=== PATIENT | female | born 2000 | race Caucasian/White ===

== ENCOUNTER 2018-11-09 18:52 | Emergency (ER) | payer OTHER ==
--- NOTE | 2018-11-09 19:40 | ED ---
Complex/Multi-Sys Presentation - HPI Summary HPI Summary: 18-year-old presents with fatigue for the past couple weeks. She's been having intermittent chest pain. States chest pain changes location. pain is sharp. She has shortness breath when she ambulates up stairs. She has some nausea and has had no appetite. She states feels very weak. She has a history of bipolar. Denies any recent medication change. Denies any cough. No sore throat. No bowel pain. No urinary symptoms. - History Of Current Complaint Chief Complaint: EDGeneral Time Seen by Provider: 11/09/18 19:31 - Allergies/Home Medications Allergies/Adverse Reactions: Allergies Allergy/AdvReac Type Severity Reaction Status Date / Time Penicillins Allergy Unknown Verified 11/09/18 18:56 Reaction Details Sulfa (Sulfonamide Allergy Hives Verified 11/09/18 18:56 Antibiotics) Home Medications: Home Medications Erythromycin TAB* 125 mg PO QID 11/09/18 [History Confirmed 11/09/18] Erythromycin/Benzoyl Peroxide [Benzamycin Gel] 46.6 gm TP DAILY 11/09/18 [ History Confirmed 11/09/18] OXcarbazepine TAB(*) [Trileptal 300 mg TAB(*)] 600 mg PO DAILY 11/09/18 [ History Confirmed 11/09/18] busPIRone TAB* [Buspar *] 30 mg PO DAILY 11/09/18 [History Confirmed 11/09/18] PMH/Surg Hx/FS Hx/Imm Hx Endocrine/Hematology History: Denies: Hx Anticoagulant Therapy Respiratory History: Denies: Hx Asthma Infectious Disease History: No Infectious Disease History: Denies: Traveled Outside the [place] in Last 30 Days - Family History Known Family History: Negative: Blood Disorder Review of Systems Negative: Fever Positive: Chest Pain Positive: Shortness Of Breath Positive: Myalgia Positive: Headache, Weakness All Other Systems Reviewed And Are Negative: Yes Physical Exam Triage Information Reviewed: Yes Vital Signs On Initial Exam: Initial Vitals Temp Pulse Resp BP Pulse Ox 99.0 F 75 19 146/92 100 11/09/18 18:52 11/09/18 18:52 11/09/18 18:52 11/09/18 18:52 11/09/18 18:52 Vital Signs Reviewed: Yes Appearance: Positive: Well-Appearing Skin: Positive: Warm, Dry Head/Face: Positive: Normal Head/Face Inspection Eyes: Positive: Normal, EOMI, JOSIAH, Conjunctiva Clear ENT: Positive: Normal ENT inspection, Pharynx normal, TMs normal Neck: Positive: Supple, Nontender, No Lymphadenopathy. Negative: Nuchal Rigidity Respiratory/Lung Sounds: Positive: Clear to Auscultation, Breath Sounds Present Cardiovascular: Positive: Normal, RRR Abdomen Description: Positive: Nontender, Soft Bowel Sounds: Positive: Present Musculoskeletal: Positive: Normal Neurological: Positive: Normal Psychiatric: Positive: Normal Diagnostics - Vital Signs Vital Signs Temp Pulse Resp BP Pulse Ox 11/09/18 18:52 99.0 F 75 19 146/92 100 - Laboratory Result Diagrams: 11/09/18 19:58 11/09/18 19:59 Lab Statement: Any lab studies that have been ordered have been reviewed, and results considered in the medical decision making process. - EKG No standard instances Cardiac Rate: NL EKG Rhythm: Sinus Rhythm Summary of EKG Findings: sinus rhythm Complex Multi-Symp Course/Dx Course Of Treatment: 18-year-old presents with fatigue for the past couple weeks. She's been having intermittent chest pain. States chest pain changes location. pain is sharp. She has shortness breath when she ambulates up stairs. She has some nausea and has had no appetite. She states feels very weak. She has a history of bipolar. Denies any recent medication change. Denies any cough. No sore throat. No bowel pain. No urinary symptoms. On exam has normal physical exam. ekg shows sinus rhythm. wbc normal. h/h normal. d -dimer neg. troponin zero. tsh normal. discussed are not finding a reason for symptoms. told to follow up with primary. patient understand and agrees with plan. - Diagnoses Differential Diagnoses/HQI/PQRI: Metabolic Abnormality, Urinary Tract Infection Provider Diagnoses: Fatigue, Atypical chest pain Discharge - Sign-Out/Discharge Documenting (check all that apply): Patient Departure Patient Received Moderate/Deep Sedation with Procedure: No - Discharge Plan Condition: Good Disposition: HOME Patient Education Materials: Fatigue (ED) Referrals: No Primary Care Phys,NOPCP [Primary Care Provider] - Additional Instructions: follow up with primary Drink plenty of fluids Return to ED if develop any new or worsening symptoms - Billing Disposition and Condition Condition: GOOD Disposition: Home
[2018-11-09 20:16] LABS: ABS Eosinophils 0.2 10^3/ul (0-0.6); ABS Lymphocytes 1.6 10^3/ul (1.0-4.8); ABS Monocytes 0.3 10^3/ul (0-0.8); ABS Neutrophils 2.9 10^3/ul (1.5-7.7); Eosinophil % 3.9 %; Hematocrit 38 % (35-47); Hemoglobin 12.8 g/dL (12.0-16.0); Lymphocyte % 32.1 %; Mean Corpuscular HGB Conc 34 g/dL (31-36); Mean Corpuscular Hemoglobin 29 pg (27-31); Mean Corpuscular Volume 84 fL (80-97); Mean Platelet Volume 8.4 fL (7.4-10.4); Nucleated Red Blood Cells % 0.1; Platelet Count 224 10^3/uL (150-450); Red Blood Count 4.48 10^6 /uL (3.70-4.87); Red Cell Distribution Width 14 % (10-15); White Blood Count 5.1 10^3/uL (3.5-10.8)
[2018-11-09 20:31] LABS: ALT 15 U/L (7-52); AST 23 U/L (13-39); Albumin 4.6 g/dL (3.2-5.2); Albumin/Globulin Ratio 2.1 (1-3); Alkaline Phosphatase 82 U/L (34-104); Anion Gap 5 mmol/L (2-11); BUN/Creatinine Ratio 17.6 (8-20); Blood Urea Nitrogen 12 mg/dL (6-24); C Reactive Protein < 1.00 mg/L (<8.01); CO2 Carbon Dioxide 28 mmol/L (22-32); Calcium 9.5 mg/dL (8.6-10.3); Chloride 107 mmol/L (101-111); EGFR African American 133.5 (>60); EGFR Non-African American 110.3 (>60); Globulin 2.2 g/dL (2-4); Glucose 110 mg/dL (70-100); Magnesium 1.9 mg/dL (1.9-2.7); Potassium 4.4 mmol/L (3.5-5.0); Sodium 140 mmol/L (135-145); Total Protein 6.8 g/dL (6.4-8.9)
[2018-11-09 21:08] LABS: TSH (Thyroid Stimulating Horm) 1.61 mcIU/mL (0.34-5.60)
[2018-11-09 21:52] VITALS: BP 125/81
[2018-11-09 21:56] LABS: Urine Appearance Turbid; Urine Bacteria Absent (Absent); Urine Bilirubin Negative (Negative); Urine Blood Negative (Negative); Urine Color Yellow; Urine Glucose Negative (Negative); Urine Ketones Negative (Negative); Urine Nitrite Negative (Negative); Urine Protein Negative (Negative); Urine Red Blood Cell Trace(0-2/hpf) (Absent); Urine Specific Gravity 1.019 (1.010-1.030); Urine Squamous Epithelial Cell Present (Absent); Urine Urobilinogen Negative (Negative); Urine White Blood Cell Trace(0-5/hpf) (Absent)
== END 2018-11-09 22:09 | disposition home or self-care (01) ==
LOC: ED 18:52
DX: R53.83 Other fatigue (principal); R07.89 Other chest pain; R06.02 Shortness of breath; R51 Headache; R53.1 Weakness; Z88.0 Allergy status to penicillin; Z88.2 Allergy status to sulfonamides
CPT/HCPCS: 36415; 80053; 81003; 81015; 83735; 84443; 84484; 84702; 85025; 85379; 86140; 86618; 87086; 93005; 99283